=== PATIENT | female | born 1975 | race African-American/Black ===

== ENCOUNTER 2023-07-09 22:05 | Emergency (ER) | payer MEDICAID ==
[~2023-07-09] VITALS: Ht 167.6 cm; Wt 88.0 kg
[2023-07-09 22:06] VITALS: O2SAT 99
[2023-07-09 22:57] LABS: BASOPHILS % 0.8 % (0.0-2.0); EOSINOPHILS % 6.3 % (0.0-5.0); HEMATOCRIT. 37.2 % (36.0-48.0); HEMOGLOBIN. 12.4 g/dL (12.0-16.0); LYMPHOCYTES % 24.7 % (20.0-50.0); MEAN CORPUSCULAR HEMOGLOBIN 26.7 pg (28.0-32.0); MEAN CORPUSCULAR HGB CONC 33.2 g/dL (31.0-37.0); MEAN CORPUSCULAR VOLUME 80.4 fL (81.0-99.0); MEAN PLATELET VOLUME 7.6 fl (7.4-10.4); MONOCYTES % 7.2 % (2.0-8.0); PLATELET 262 x1000/uL (130-400); RED BLOOD CELL COUNT 4.63 mill/uL (4.2-5.4); RED CELL DISTRIBUTION WIDTH 13.3 % (11.6-14.6); WHITE BLOOD COUNT 5.9 x1000/uL (4.5-11.0)
[2023-07-09 23:02] LABS: CHLORIDE 105 mEq/L (98-107); POTASSIUM 3.4 mEq/L (3.5-5.1); SODIUM 137 mEq/L (136-145)
[2023-07-09 23:03] LABS: CALCIUM 8.4 mg/dL (8.7-10.4); CARBON DIOXIDE 26 mEq/L (21-32)
[2023-07-09 23:08] LABS: CREATININE 0.9 mg/dL (0.6-1.0); GLUCOSE 98 mg/dL (70-105); UREA NITROGEN BLOOD 6 mg/dL (9-23)
[2023-07-09 23:13] LABS: TROPONIN I HIGH SENSITIVITY < 4 ng/L (3.0-34)
[2023-07-09 23:51] LABS: HCG SCREEN NEGATIVE
[2023-07-09 23:57] LABS: ALANINE AMINOTRANSFERASE 31 IU/L (10-49); ALBUMIN 4.6 g/dL (3.2-4.8); ASPARTATE AMINOTRANSFERASE 29 IU/L (<34); BILIRUBIN DIRECT 0.1 mg/dL (<=3.0); BILIRUBIN TOTAL 0.4 mg/dL (0.1-1.0); PROTEIN TOTAL 7.1 g/dL (6.0-8.3)
[2023-07-10] MEDS ORDERED: AZIT250T12 MT (04:18)
[2023-07-10 04:33] VITALS: BP 118/61; PULSE 73; RESP 17; TEMP 98.9
[2023-07-10 06:01] LABS: CLARITY URINE CLOUDY (CLEAR); COLOR URINE YELLOW (YELLOW); GLUCOSE URINE NEGATIVE (NEGATIVE); KETONES URINE NEGATIVE (NEGATIVE); LEUKOCYTE ESTERASE URINE TRACE (NEGATIVE); NITRITE URINE NEGATIVE (NEGATIVE); OCCULT BLOOD URINE NEGATIVE (NEGATIVE); PH URINE 6.5 (4.5-8.0); PROTEIN URINE NEGATIVE (NEGATIVE); SPECIFIC GRAVITY URINE 1.006 (1.005-1.030)
[2023-07-10 07:05] LABS: SQUAMOUS EPITHELIAL CELL URINE 1+ /lpf (RARE/1+)
[2023-07-10 07:06] LABS: RBC URINE 0-2 /hpf (0-2); WBC URINE 0-2 /hpf (0-2)
[2023-07-10 07:09] LABS: BACTERIA URINE TRACE
== END 2023-07-10 04:35 | disposition home or self-care (01) ==
LOC: ER 22:05
DX: J06.9 Acute upper respiratory infection, unspecified (principal); Z20.822 Contact with and (suspected) exposure to COVID-19
CPT/HCPCS: 36415; 71045; 74176; 80048; 80076; 81003; 84484; 84703; 85025; 87426; 87804; 93005; 99285

== ENCOUNTER 2023-07-22 07:26 | Emergency (ER) | payer MEDICAID ==
[~2023-07-22] VITALS: Ht 167.6 cm; Wt 88.0 kg
[~2023-07-22 07:26] MED LIST: AZIT250T12 MT
[2023-07-22 07:44] VITALS: O2SAT 99
[2023-07-22] MEDS: DEXAMETHASONE 10 MG/ML VIAL IM ONE (08:58)
[2023-07-22 09:13] LABS: CHLORIDE 106 mEq/L (98-107); INR 0.9; POTASSIUM 3.9 mEq/L (3.5-5.1); PROTHROMBIN TIME 10.2 sec (9.6-11.0); SODIUM 138 mEq/L (136-145)
[2023-07-22 09:14] LABS: CARBON DIOXIDE 26 mEq/L (21-32)
[2023-07-22 09:15] LABS: CALCIUM 9.2 mg/dL (8.7-10.4)
[2023-07-22 09:18] LABS: CLARITY URINE CLOUDY (CLEAR); COLOR URINE YELLOW (YELLOW); GLUCOSE URINE NEGATIVE (NEGATIVE); KETONES URINE TRACE (NEGATIVE); LEUKOCYTE ESTERASE URINE NEGATIVE (NEGATIVE); NITRITE URINE NEGATIVE (NEGATIVE); OCCULT BLOOD URINE NEGATIVE (NEGATIVE); PH URINE 5.5 (4.5-8.0); PROTEIN URINE NEGATIVE (NEGATIVE); SPECIFIC GRAVITY URINE 1.024 (1.005-1.030)
[2023-07-22 09:19] LABS: CREATININE 0.9 mg/dL (0.6-1.0); GLUCOSE 91 mg/dL (70-105)
[2023-07-22 09:20] LABS: UREA NITROGEN BLOOD 8 mg/dL (9-23)
[2023-07-22 09:21] LABS: ALANINE AMINOTRANSFERASE 49 IU/L (10-49); ALBUMIN 4.5 g/dL (3.2-4.8); ASPARTATE AMINOTRANSFERASE 27 IU/L (<34)
[2023-07-22 09:22] LABS: BILIRUBIN TOTAL 0.9 mg/dL (0.1-1.0)
[2023-07-22 09:24] LABS: T4 FREE 1.06 ng/dL (0.89-1.76); THYROID STIMULATING HORMONE 2.64 uIU/mL (0.55-4.78)
[2023-07-22 09:26] LABS: HCG SCREEN NEGATIVE; TROPONIN I HIGH SENSITIVITY < 4 ng/L (3.0-34)
[2023-07-22 09:28] LABS: SQUAMOUS EPITHELIAL CELL URINE 2+ /lpf (RARE/1+)
[2023-07-22 09:29] LABS: BACTERIA URINE 2+; MUCUS URINE TRACE /lpf (< = 2+); RBC URINE 0-2 /hpf (0-2); WBC URINE 0-2 /hpf (0-2); YEAST URINE NONE SEEN
[2023-07-22 09:39] LABS: BASOPHILS % 0.6 % (0.0-2.0); DIFFERENTIAL COMMENT 0; HEMATOCRIT. 37.4 % (36.0-48.0); HEMOGLOBIN. 12.5 g/dL (12.0-16.0); MEAN CORPUSCULAR HEMOGLOBIN 26.4 pg (28.0-32.0); MEAN CORPUSCULAR HGB CONC 33.3 g/dL (31.0-37.0); MEAN CORPUSCULAR VOLUME 79.4 fL (81.0-99.0); MEAN PLATELET VOLUME 7.9 fl (7.4-10.4); MONOCYTES % 5.8 % (2.0-8.0); NEUTROPHILS % 63.6 % (40.0-76.0); PLATELET 406 x1000/uL (130-400); RED BLOOD CELL COUNT 4.72 mill/uL (4.2-5.4); WHITE BLOOD COUNT 7.3 x1000/uL (4.5-11.0)
[2023-07-22] MEDS ORDERED: IOHEXOL-350 100 ML BOTTLE ONE (10:39)
[2023-07-22 11:57] VITALS: BP 132/100; PULSE 62; RESP 18; TEMP 98.2
[2023-07-23] MEDS ORDERED: NAPR-681 MT (03:27)
== END 2023-07-22 12:02 | disposition home or self-care (01) ==
LOC: ER 08:17
DX: R07.89 Other chest pain (principal); J02.9 Acute pharyngitis, unspecified
CPT/HCPCS: 80053; 81003; 81025; 84703; 84439; 83690; 84443; 85025; 85379; 85610; 84484; 36415; 71045; 71275; 93005; 96372; 99285; Q9967; J1100; Z7610

== ENCOUNTER 2023-07-23 00:46 | Emergency (ER) | payer MEDICAID ==
[~2023-07-23] VITALS: Ht 167.6 cm; Wt 87.0 kg
[2023-07-23 00:52] VITALS: BP 144/91; PULSE 93; RESP 18; TEMP 98.7; O2SAT 98
[2023-07-23] MEDS ORDERED: NAPR-681 MT (03:27)
== END 2023-07-23 05:15 | disposition home or self-care (01) ==
LOC: ER 01:07
DX: R10.30 Lower abdominal pain, unspecified (principal); M54.2 Cervicalgia; M79.602 Pain in left arm; Z86.39 Personal history of other endocrine, nutritional and metabolic disease
CPT/HCPCS: 76700; 76830; 76856; 99284

== ENCOUNTER 2023-09-15 11:16 | Emergency (ER) | payer MEDICAID ==
[~2023-09-15] VITALS: Ht 167.6 cm; Wt 77.0 kg
[~2023-09-15 11:16] MED LIST changes: +NAPR-681 MT
[2023-09-15 11:27] VITALS: O2SAT 98
[2023-09-15 11:44] LABS: BASOPHILS % 0.7 % (0.0-2.0); EOSINOPHILS % 5.9 % (0.0-5.0); HEMATOCRIT. 39.7 % (36.0-48.0); HEMOGLOBIN. 13.1 g/dL (12.0-16.0); LYMPHOCYTES % 27.7 % (20.0-50.0); MEAN CORPUSCULAR HEMOGLOBIN 26.9 pg (28.0-32.0); MEAN CORPUSCULAR VOLUME 81.4 fL (81.0-99.0); MEAN PLATELET VOLUME 7.3 fl (7.4-10.4); MONOCYTES % 6.8 % (2.0-8.0); NEUTROPHILS % 58.9 % (40.0-76.0); PLATELET 365 x1000/uL (130-400); RED BLOOD CELL COUNT 4.88 mill/uL (4.2-5.4); RED CELL DISTRIBUTION WIDTH 14.9 % (11.6-14.6); WHITE BLOOD COUNT 6.6 x1000/uL (4.5-11.0)
[2023-09-15 11:59] LABS: CARBON DIOXIDE 25 mEq/L (21-32); CHLORIDE 105 mEq/L (98-107); POTASSIUM 4.3 mEq/L (3.5-5.1); SODIUM 138 mEq/L (136-145)
[2023-09-15 12:04] LABS: CREATININE 0.8 mg/dL (0.6-1.0)
[2023-09-15 12:05] LABS: GLUCOSE 84 mg/dL (70-105); UREA NITROGEN BLOOD 9 mg/dL (9-23)
[2023-09-15 12:06] LABS: ALANINE AMINOTRANSFERASE 16 IU/L (10-49); ALBUMIN 4.5 g/dL (3.2-4.8); ASPARTATE AMINOTRANSFERASE 15 IU/L (<34)
[2023-09-15 12:07] LABS: BILIRUBIN DIRECT 0.2 mg/dL (<=3.0); BILIRUBIN TOTAL 0.7 mg/dL (0.1-1.0); HCG SCREEN NEGATIVE; PROTEIN TOTAL 7.1 g/dL (6.0-8.3)
[2023-09-15 12:21] LABS: TROPONIN I HIGH SENSITIVITY < 4 ng/L (3.0-34)
[2023-09-15 12:24] LABS: CLARITY URINE TURBID (CLEAR); COLOR URINE YELLOW (YELLOW); GLUCOSE URINE NEGATIVE (NEGATIVE); KETONES URINE NEGATIVE (NEGATIVE); LEUKOCYTE ESTERASE URINE NEGATIVE (NEGATIVE); NITRITE URINE NEGATIVE (NEGATIVE); OCCULT BLOOD URINE NEGATIVE (NEGATIVE); PH URINE 6.5 (4.5-8.0); PROTEIN URINE NEGATIVE (NEGATIVE)
[2023-09-15] MEDS: KETOROLAC 30MG/ML VIAL IM ONE (12:34)
[2023-09-15 13:07] LABS: SQUAMOUS EPITHELIAL CELL URINE 3+ /lpf (RARE/1+)
[2023-09-15 13:08] LABS: BACTERIA URINE 4+
[2023-09-15 13:09] LABS: RBC URINE 0-2 /hpf (0-2); WBC URINE 0-2 /hpf (0-2)
[2023-09-15] MEDS: ONDANSETRON 4MG ODT PO ONE (14:02)
[2023-09-15 16:10] VITALS: BP 127/82; PULSE 72; RESP 18; TEMP 98.2
== END 2023-09-15 16:17 | disposition home or self-care (01) ==
LOC: ER 11:16
DX: R07.81 Pleurodynia (principal); R16.0 Hepatomegaly, not elsewhere classified; Z98.890 Other specified postprocedural states; Z90.710 Acquired absence of both cervix and uterus
CPT/HCPCS: 80076; 80048; 81003; 81025; 84703; 83690; 85025; 84484; 36415; 71045; 74176; 76705; 93005; 96372; 99285; Q0162; J1885; Z7610

== ENCOUNTER 2024-06-29 11:07 | Emergency (ER) | payer MEDICAID ==
[~2024-06-29] VITALS: Ht 162.6 cm; Wt 85.0 kg
[2024-06-29 11:08] VITALS: O2SAT 99
[2024-06-29 11:14] VITALS: BP 129/83; PULSE 70; RESP 18; TEMP 36.5; O2SAT 99
[2024-06-29 12:58] LABS: BASOPHILS % 0.6 % (0.0-2.0); EOSINOPHILS % 6.5 % (0.0-5.0); HEMATOCRIT. 39.9 % (36.0-48.0); HEMOGLOBIN. 13.3 g/dL (12.0-16.0); LYMPHOCYTES % 24.5 % (20.0-50.0); MEAN CORPUSCULAR HEMOGLOBIN 26.8 pg (28.0-32.0); MEAN CORPUSCULAR HGB CONC 33.2 g/dL (31.0-37.0); MEAN CORPUSCULAR VOLUME 80.7 fL (81.0-99.0); MEAN PLATELET VOLUME 7.6 fl (7.4-10.4); MONOCYTES % 5.4 % (2.0-8.0); PLATELET 311 x1000/uL (130-400); RED BLOOD CELL COUNT 4.95 mill/uL (4.2-5.4); RED CELL DISTRIBUTION WIDTH 15.6 % (11.6-14.6); WHITE BLOOD COUNT 5.9 x1000/uL (4.5-11.0)
[2024-06-29] MEDS: KETOROLAC 30MG/ML VIAL IM ONE (13:04)
[2024-06-29 13:09] LABS: CHLORIDE 105 mEq/L (98-107); SODIUM 140 mEq/L (136-145)
[2024-06-29 13:10] LABS: CALCIUM 9.5 mg/dL (8.7-10.4); CARBON DIOXIDE 27 mEq/L (21-32)
[2024-06-29 13:15] LABS: CREATININE 0.9 mg/dL (0.6-1.0); GLUCOSE 97 mg/dL (70-105); UREA NITROGEN BLOOD 7 mg/dL (9-23)
[2024-06-29] MEDS ORDERED: TOPUD PO (13:20)
[2024-06-29] MEDS ORDERED: IBUP-2029 MT (13:20)
== END 2024-06-29 13:32 | disposition home or self-care (01) ==
LOC: ER 11:07
DX: B34.9 Viral infection, unspecified (principal); Z90.710 Acquired absence of both cervix and uterus; Z90.721 Acquired absence of ovaries, unilateral; Z86.39 Personal history of other endocrine, nutritional and metabolic disease
CPT/HCPCS: 99283; 80048; 85025; 36415; 96372; J1885

== ENCOUNTER 2024-07-09 23:30 | Emergency (ER) | payer MEDICAID, OTHER ==
[~2024-07-09] VITALS: Ht 162.6 cm; Wt 91.0 kg
[~2024-07-09 23:30] MED LIST changes: +IBUP-2029 MT; +TOPUD PO
[2024-07-09 23:48] VITALS: TEMP 36.8; O2SAT 99
[2024-07-10 01:03] LABS: CLARITY URINE CLEAR (CLEAR); COLOR URINE YELLOW (YELLOW); GLUCOSE URINE NEGATIVE (NEGATIVE); KETONES URINE NEGATIVE (NEGATIVE); LEUKOCYTE ESTERASE URINE 3+ (NEGATIVE); NITRITE URINE NEGATIVE (NEGATIVE); OCCULT BLOOD URINE NEGATIVE (NEGATIVE); PH URINE 6.5 (4.5-8.0); PROTEIN URINE NEGATIVE (NEGATIVE); SPECIFIC GRAVITY URINE 1.016 (1.005-1.030); UROBILINOGEN URINE 0.2 E.U./dL (0.2-1.0)
[2024-07-10 01:34] LABS: BASOPHILS % 0.8 % (0.0-2.0); EOSINOPHILS % 6.6 % (0.0-5.0); HEMATOCRIT. 37.8 % (36.0-48.0); HEMOGLOBIN. 12.5 g/dL (12.0-16.0); LYMPHOCYTES % 24.5 % (20.0-50.0); MEAN CORPUSCULAR HEMOGLOBIN 26.6 pg (28.0-32.0); MEAN CORPUSCULAR VOLUME 80.5 fL (81.0-99.0); MEAN PLATELET VOLUME 7.9 fl (7.4-10.4); MONOCYTES % 7.2 % (2.0-8.0); NEUTROPHILS % 60.9 % (40.0-76.0); PLATELET 315 x1000/uL (130-400); RED BLOOD CELL COUNT 4.69 mill/uL (4.2-5.4); RED CELL DISTRIBUTION WIDTH 15.1 % (11.6-14.6); WHITE BLOOD COUNT 5.9 x1000/uL (4.5-11.0)
[2024-07-10] MEDS: ONDANSETRON 4MG ODT PO ONE (01:45)
[2024-07-10 01:48] LABS: CHLORIDE 106 mEq/L (98-107); POTASSIUM 3.9 mEq/L (3.5-5.1); SODIUM 140 mEq/L (136-145)
[2024-07-10 01:49] LABS: CARBON DIOXIDE 28 mEq/L (21-32)
[2024-07-10 01:50] LABS: CALCIUM 9.1 mg/dL (8.7-10.4); PROTHROMBIN TIME 10.3 sec (9.6-11.0)
[2024-07-10 01:55] LABS: CREATININE 1.2 mg/dL (0.6-1.0); GLUCOSE 89 mg/dL (70-105); UREA NITROGEN BLOOD 11 mg/dL (9-23)
[2024-07-10] MEDS: ACETAMINOPHEN 325MG TABLET PO ONE (01:55)
[2024-07-10 01:56] LABS: ALANINE AMINOTRANSFERASE 65 IU/L (10-49); ASPARTATE AMINOTRANSFERASE 58 IU/L (<34)
[2024-07-10 01:57] LABS: ALBUMIN 4.8 g/dL (3.2-4.8); BILIRUBIN DIRECT < 0.1 mg/dL (<=3.0); BILIRUBIN TOTAL 0.3 mg/dL (0.1-1.0); PROTEIN TOTAL 7.6 g/dL (6.0-8.3)
[2024-07-10 02:07] LABS: HCG SCREEN NEGATIVE
[2024-07-10] MEDS ORDERED: DIPH25CA83 MT (02:09)
[2024-07-10] MEDS ORDERED: ACET-2708 MT (02:09)
[2024-07-10 02:38] VITALS: BP 144/86; PULSE 76; RESP 16; O2SAT 100
[2024-07-10] MEDS: KETOROLAC 30MG/ML VIAL IM ONE (02:38)
[2024-07-10 03:00] LABS: RBC URINE 0-2 /hpf (0-2); SQUAMOUS EPITHELIAL CELL URINE 1+ /lpf (RARE/1+)
[2024-07-10 03:02] LABS: BACTERIA URINE 1+; YEAST URINE 2+
== END 2024-07-10 02:39 | disposition home or self-care (01) ==
LOC: ER 23:30
DX: R51.9 Headache, unspecified (principal); E05.90 Thyrotoxicosis, unspecified without thyrotoxic crisis or storm; Z90.710 Acquired absence of both cervix and uterus; Z98.890 Other specified postprocedural states; Z79.899 Other long term (current) drug therapy; Z79.1 Long term (current) use of non-steroidal anti-inflammatories (NSAID)
CPT/HCPCS: 99285; 81025; 70450; 80076; 80048; 81003; 84703; 83690; 85025; 85610; 36415; 96372; Q0162

== ENCOUNTER 2024-11-19 22:14 | Emergency (ER) | payer MEDICAID ==
[~2024-11-19 22:14] MED LIST changes: +ACET-2708 MT; +DIPH25CA83 MT; +IBUP-1455 MT; -IBUP-2029 MT
[2024-11-19 22:35] VITALS: PULSE 72; RESP 18; O2SAT 100
== END 2024-11-19 22:50 | disposition left against medical advice (07) ==
LOC: ER 22:14
DX: M79.89 Other specified soft tissue disorders (principal); R10.9 Unspecified abdominal pain; R11.0 Nausea
CPT/HCPCS: 99281

== ENCOUNTER 2024-12-03 10:01 | Inpatient (IN) | payer MEDICAID ==
[~2024-12-03] VITALS: Ht 167.6 cm; Wt 76.7 kg
[2024-12-03 10:09] VITALS: O2SAT 98
[2024-12-03 11:30] LABS: BASOPHILS % 0.6 % (0.0-2.0); EOSINOPHILS % 5.5 % (0.0-5.0); HEMATOCRIT. 40.8 % (36.0-48.0); HEMOGLOBIN. 13.1 g/dL (12.0-16.0); LYMPHOCYTES % 23.6 % (20.0-50.0); MEAN PLATELET VOLUME 8.0 fl (7.4-10.4); MONOCYTES % 6.3 % (2.0-8.0); NEUTROPHILS % 64.0 % (40.0-76.0); PLATELET 326 x1000/uL (130-400); RED BLOOD CELL COUNT 4.92 mill/uL (4.2-5.4); RED CELL DISTRIBUTION WIDTH 13.7 % (11.6-14.6)
[2024-12-03 11:43] LABS: CREATININE 0.9 mg/dL (0.6-1.0); HCG SCREEN NEGATIVE; UREA NITROGEN BLOOD 8 mg/dL (9-23)
[2024-12-03 11:44] LABS: TROPONIN I HIGH SENSITIVITY < 4 ng/L (3.0-34)
[2024-12-03] MEDS: DIATR MEGLU/DIATRIZOATE SOLN 30ML ONE (11:55)
[2024-12-03 12:53] LABS: TROPONIN I HIGH SENSITIVITY < 4 ng/L (3.0-34)
[2024-12-03] MEDS: ONDANSETRON HCL 4MG/2ML INJ IV ONE (14:48)
[2024-12-03] MEDS: SODIUM CHLORIDE 0.9% 1,000 ML IV ONE (14:48)
[2024-12-03] MEDS: IOHEXOL-300 100 ML BOTTLE ONE (14:48)
[2024-12-03 16:00] VITALS: BP 125/74; PULSE 55; RESP 16; TEMP 36.1; O2SAT 100
[2024-12-03] MEDS: POLYETHYLENE GLYCOL 3350 (17GM) 1 DOSE PACK PO NR (17:00)
[2024-12-03] MEDS ORDERED: DICY10SO MT (19:18)
[2024-12-03] MEDS ORDERED: LORA2ORA5 MT (19:18)
[2024-12-03] MEDS ORDERED: BENTL PO (19:18)
[2024-12-03] MEDS ORDERED: TRAZ-251 PO (19:18)
[2024-12-03] MEDS ORDERED: ESTR1PAT66 TD (19:18)
[2024-12-03] MEDS ORDERED: LORA2DIS6 SQ (19:18)
[2024-12-03] MEDS ORDERED: OMEP20TA23 PO (19:18)
[2024-12-03] MEDS ORDERED: PANT40SU PO (19:18)
[2024-12-03] MEDS ORDERED: LINA145C PO (19:18)
[2024-12-03 20:00] VITALS: BP 112/64; PULSE 66; RESP 20; TEMP 36.4; TEMP 36.418; O2SAT 98
[2024-12-03] MEDS: SENNOSIDES/DOCUSATE SOD 8.6/50MG TABLET PO PRN (21:19)
[2024-12-03] MEDS: ACETAMINOPHEN 325MG TABLET PO PRN (21:34)
[2024-12-03 22:16] LABS: TROPONIN I HIGH SENSITIVITY < 4 ng/L (3.0-34)
[2024-12-04] VITALS: BP 116/60; PULSE 60; RESP 20; TEMP 36.1; O2SAT 98
[2024-12-04] MEDS: ONDANSETRON HCL 4MG/2ML INJ IV PRN (02:24)
[2024-12-04 04:00] VITALS: BP 105/60; PULSE 60; RESP 20; TEMP 35.9; O2SAT 100
[2024-12-04 07:36] LABS: BASOPHILS % 0.8 % (0.0-2.0); EOSINOPHILS % 6.4 % (0.0-5.0); HEMATOCRIT. 38.5 % (36.0-48.0); HEMOGLOBIN. 12.8 g/dL (12.0-16.0); LYMPHOCYTES % 24.5 % (20.0-50.0); MEAN PLATELET VOLUME 8.1 fl (7.4-10.4); MONOCYTES % 6.7 % (2.0-8.0); NEUTROPHILS % 61.6 % (40.0-76.0); PLATELET 293 x1000/uL (130-400); RED BLOOD CELL COUNT 4.64 mill/uL (4.2-5.4); RED CELL DISTRIBUTION WIDTH 13.4 % (11.6-14.6)
[2024-12-04 08:00] VITALS: BP 110/67; PULSE 82; RESP 16; TEMP 36.2; O2SAT 100
[2024-12-04 08:25] LABS: CREATININE 0.9 mg/dL (0.6-1.0); UREA NITROGEN BLOOD 8 mg/dL (9-23)
[2024-12-04] MEDS: POLYETHYLENE GLYCOL 3350 (17GM) 1 DOSE PACK PO SCH ×2 (10:57→21:42)
[2024-12-04] MEDS: PANTOPRAZOLE SODIUM 40 MG/VIAL IV SCH (10:58)
[2024-12-04] MEDS: POLYETHYLENE GLYCOL 3350 (17GM) 1 DOSE PACK ONE (10:58)
[2024-12-04 12:00] VITALS: BP 115/62; PULSE 70; RESP 20; TEMP 36.3; O2SAT 100
[2024-12-04] MEDS: DOCUSATE SODIUM 100MG CAPSULE PO SCH (14:40)
[2024-12-04] MEDS: NA PHOS,M-B/NA PHOS,DI-BA ENEMA 118ML PR SCH (14:40)
[2024-12-04 16:00] VITALS: BP 117/71; PULSE 81; RESP 18; TEMP 36.4; O2SAT 100
[2024-12-04 20:00] VITALS: BP 125/75; PULSE 71; RESP 18; TEMP 37.1; O2SAT 99
[2024-12-04] MEDS: SENNOSIDES 8.6MG TABLET PO SCH (21:39)
[2024-12-04] MEDS: TRAZODONE HCL 50MG TABLET PO SCH (23:13)
[2024-12-04] MEDS: LORAZEPAM 1MG TABLET PO PRN (23:13)
[2024-12-04] MEDS ORDERED: *PATIENT'S OWN MEDICATION STORAGE XX SCH (23:15)
[2024-12-05] VITALS: BP 98/58; PULSE 74; RESP 19; TEMP 36.5; O2SAT 99
[2024-12-05 04:00] VITALS: BP 114/82; PULSE 85; RESP 19; TEMP 36.4; O2SAT 100
[2024-12-05] MEDS ORDERED: LACTULOSE 20G/30ML UDC PO PRN (04:45)
[2024-12-05 08:00] VITALS: BP 131/70; PULSE 81; RESP 20; TEMP 36.3; O2SAT 100
[2024-12-05 09:21] LABS: BASOPHILS % 0.5 % (0.0-2.0); EOSINOPHILS % 5.1 % (0.0-5.0); HEMATOCRIT. 41.4 % (36.0-48.0); HEMOGLOBIN. 13.5 g/dL (12.0-16.0); LYMPHOCYTES % 21.8 % (20.0-50.0); MEAN PLATELET VOLUME 8.5 fl (7.4-10.4); MONOCYTES % 8.0 % (2.0-8.0); NEUTROPHILS % 64.6 % (40.0-76.0); PLATELET 308 x1000/uL (130-400); RED BLOOD CELL COUNT 5.01 mill/uL (4.2-5.4); RED CELL DISTRIBUTION WIDTH 13.6 % (11.6-14.6)
[2024-12-05 09:48] LABS: CREATININE 0.9 mg/dL (0.6-1.0); UREA NITROGEN BLOOD 7 mg/dL (9-23)
[2024-12-05 12:00] VITALS: BP 115/57; PULSE 72; RESP 18; TEMP 36.3; O2SAT 98
[2024-12-05 16:00] VITALS: BP 104/54; PULSE 78; RESP 17; TEMP 36.4; O2SAT 100
[2024-12-05] MEDS: METOCLOPRAMIDE HCL 10MG/2ML VIAL IV SCH (18:48)
[2024-12-05 20:00] VITALS: BP 103/60; PULSE 69; RESP 19; TEMP 36.5; O2SAT 99
[2024-12-06] VITALS: BP 102/63; PULSE 68; RESP 19; TEMP 36.7; O2SAT 100
[2024-12-06 04:00] VITALS: BP 146/89; PULSE 67; RESP 19; TEMP 36.9; O2SAT 96
[2024-12-06 08:00] VITALS: BP 100/62; PULSE 73; RESP 19; TEMP 36.2; O2SAT 98
[2024-12-06 10:28] VITALS: BP 111/65; PULSE 72; RESP 18; TEMP 97.7
== END 2024-12-06 11:56 | disposition home or self-care (01) | DRG 254 ==
LOC: ER 10:01 → 7EST 14:15 → EDBEDREQ 14:19 → EDBEDREQSVC 14:19 → EDBEDREQTM 14:19 → ENRESERV 14:24
PROVIDERS: ADMIT Internal Medicine; ATTEND Internal Medicine
DX: K59.00 Constipation, unspecified (principal); K56.7 Ileus, unspecified; E05.90 Thyrotoxicosis, unspecified without thyrotoxic crisis or storm; R32 Unspecified urinary incontinence; Z90.711 Acquired absence of uterus with remaining cervical stump; Z98.891 History of uterine scar from previous surgery
CPT/HCPCS: 36415; 71045; 74018; 74177; 80048; 83880; 84484; 84703; 85025; 93005; 99285; A4606; J2405; J2470; J2765; J7030; Q9963; Q9967

== ENCOUNTER 2025-02-05 11:44 | Emergency (ER) | payer MEDICAID ==
[~2025-02-05] VITALS: Ht 162.6 cm; Wt 87.0 kg
[~2025-02-05 11:44] MED LIST changes: -AZIT250T12 MT; +BENTL PO; +DICY10SO MT; +ESTR1PAT66 TD; +LINA145C PO; +LORA2DIS6 SQ; +LORA2ORA5 MT; +OMEP20TA23 PO; +PANT40SU PO; +TRAZ-251 PO
[2025-02-05 12:11] VITALS: O2SAT 99
[2025-02-05 12:42] LABS: BASOPHILS % 0.5 % (0.0-2.0); EOSINOPHILS % 2.5 % (0.0-5.0); HEMATOCRIT. 39.4 % (36.0-48.0); HEMOGLOBIN. 13.0 g/dL (12.0-16.0); LYMPHOCYTES % 22.9 % (20.0-50.0); MEAN PLATELET VOLUME 7.4 fl (7.4-10.4); MONOCYTES % 6.1 % (2.0-8.0); NEUTROPHILS % 68.0 % (40.0-76.0); PLATELET 284 x1000/uL (130-400); RED BLOOD CELL COUNT 4.73 mill/uL (4.2-5.4); RED CELL DISTRIBUTION WIDTH 16.0 % (11.6-14.6)
[2025-02-05 12:55] LABS: CLARITY URINE CLOUDY (CLEAR); COLOR URINE DARK YELLOW (YELLOW); GLUCOSE URINE NEGATIVE (NEGATIVE); KETONES URINE NEGATIVE (NEGATIVE); LEUKOCYTE ESTERASE URINE NEGATIVE (NEGATIVE); NITRITE URINE NEGATIVE (NEGATIVE); OCCULT BLOOD URINE NEGATIVE (NEGATIVE); PH URINE 5.5 (4.5-8.0); PROTEIN URINE TRACE (NEGATIVE); SPECIFIC GRAVITY URINE 1.028 (1.005-1.030); UROBILINOGEN URINE 1.0 E.U./dL (0.2-1.0)
[2025-02-05 12:56] LABS: CREATININE 1.1 mg/dL (0.6-1.0); UREA NITROGEN BLOOD 9 mg/dL (9-23)
[2025-02-05 13:35] LABS: BACTERIA URINE 2+; RBC URINE NONE SEEN /hpf (0-2); SQUAMOUS EPITHELIAL CELL URINE 2+ /lpf (RARE/1+); WBC URINE NONE SEEN /hpf (0-2)
[2025-02-05] MEDS: ONDANSETRON 4MG ODT PO SCH (15:09)
[2025-02-05] MEDS: FAMOTIDINE 20MG TABLET PO SCH (15:09)
[2025-02-05 15:27] LABS: PROTEIN TOTAL 7.5 g/dL (6.0-8.3)
[2025-02-05 15:29] LABS: ASPARTATE AMINOTRANSFERASE 21 IU/L (<34); BILIRUBIN DIRECT 0.3 mg/dL (<=3.0); BILIRUBIN TOTAL 1.0 mg/dL (0.1-1.0)
[2025-02-05 16:41] LABS: HCG SCREEN NEGATIVE
[2025-02-05] MEDS: SODIUM CHLORIDE 0.9% 1,000 ML IV NR (16:52)
[2025-02-05 17:18] VITALS: BP 127/82; PULSE 63; RESP 16; TEMP 36.7; O2SAT 100
== END 2025-02-05 17:20 | disposition home or self-care (01) ==
LOC: ER 11:44
DX: R10.A1 Flank pain, right side (principal); E05.90 Thyrotoxicosis, unspecified without thyrotoxic crisis or storm; Z98.890 Other specified postprocedural states; Z98.891 History of uterine scar from previous surgery; Z90.710 Acquired absence of both cervix and uterus; Z79.1 Long term (current) use of non-steroidal anti-inflammatories (NSAID); Z79.899 Other long term (current) drug therapy
CPT/HCPCS: 80076; 80048; 81003; 81025; 84703; 83690; 85025; 36415; 74176; 96360; 99284; Q0162; J7030; Z7610 ×2